=== PATIENT | male | born 1995 | race Two or more races ===

== ENCOUNTER 2018-08-22 20:01 | Emergency (ER) | payer MEDICAID ==
[~2018-08-22] VITALS: Ht 182.9 cm; Wt 73.3 kg
[2018-08-22 20:22] VITALS: BP 137/79
== END 2018-08-22 23:00 | disposition left against medical advice (07) ==
LOC: ER 20:01
DX: Z53.21 Procedure and treatment not carried out due to patient leaving prior to being seen by health care provider (principal)